=== PATIENT | female | born 1950 | race Caucasian/White ===

== ENCOUNTER 2017-02-13 10:18 | Outpatient (CLI) | payer MEDICARE, BC ==
--- NOTE | 2017-02-13 15:36 | RAD ---
ESOPHAGRAM: DATE: 02/13/17. HISTORY: Paraesophageal hernia, dysphagia. The patient has a history of paraesophageal hernia repair. The pa tiebetty now has dysphagia and feels as if liquids get stuck in upper esophagus. FLUOROSCOPY: Total fluoroscopy time 2.4 minutes with total dose of 1297.7 mGy*^cm2. FINDINGS: Thin liquid barium was administered during the exam. Esophagus has a normal appearance without evide nce of mucosal irregularity. However, there is tortuosity involving the distal esophagus with a foca l area of narrowing in the distal esophagus, some of which may be related to tortuosity and secondary to prior hiatal hernia repair. A 12.5 mm barium tablet was administered during the exam with holdup in the area of narrowing in the distal esophagus in the area of tortuosity. Esophagus proximal to t his region was also mildly dilated. There is evidence of gastroesophageal reflux with contrast exten ding to the level of the upper cervical esophagus. No definitive mucosal irregularity is appreciated in the esophagus. A 12.5 mm barium tablet does traverse the cervical and thoracic esophagus freely and without holdup aside from holdup at the level of narrowing in the most distal esophagus. Chest x-ray obtained prior to this exam demonstrates normal size of the cardiac silhouette. Pulmonar y vasculature is within normal limits and the lungs are clear. Vascular calcification in the thoraci c aorta. IMPRESSION: 1. Focal narrowing of the distal thoracic esophagus which is in the region of tortuosity and some of this is likely attributable to prior hiatal hernia repair. There is a persistent very small hiatal hernia. Esophagus just proximal to the area of narrowing is mildly dilated. There is evidence of ga stroesophageal reflux to the level of the upper cervical esophagus. 2. No focal persistent narrowing is seen in the cervical esophagus. No definitive mucosal irregular ity is appreciated on this exam. POS: AUGUSTUS
== END 2017-02-13 10:19 | disposition home or self-care (01) ==
LOC: RAD 10:18
PROVIDERS: ATTEND Surgery
DX: K44.9 Diaphragmatic hernia without obstruction or gangrene (principal); K21.9 Gastro-esophageal reflux disease without esophagitis; K22.8 Other specified diseases of esophagus; R13.10 Dysphagia, unspecified
CPT/HCPCS: 74220

== ENCOUNTER 2017-03-10 06:42 | Day surgery (SDC) | payer MEDICARE, BC ==
[2017-03-09 10:40] VITALS: BMI 29.0
--- NOTE | 2017-03-10 05:47 | HP ---
SHORT STAY HISTORY AND PHYSICAL DATE OF ADMISSION: 03/10/2017 HISTORY: This is a 66-year-old with dysphagia of recent onset. The patient is status post Talat fundoplication by Dr. Antonio in the past. The patient has history of dysphagia over the last several months. She had a barium study which revealed a delay of passage of the barium tablet. Also the esophageal body was dilated with some retained fluid. The patient underwent EGD because of dysphagia. ALLERGIES: None. PAST MEDICAL HISTORY: 1. Chronic reflux esophagitis. 2. Hyperlipidemia. 3. Hiatus hernia, status post repair. 4. Barroso's mucosa. PHYSICAL EXAMINATION: VITAL SIGNS: Pulse is 70, blood pressure 130/80. HEENT: Conjunctivae clear. CARDIOVASCULAR: First and second heart sounds are normal. LUNGS: Clear to auscultation. ABDOMEN: Soft to palpate. No organomegaly. No tenderness. No masses. ADMITTING DIAGNOSIS: Dysphagia. PLAN: EGD and possible dilation. MTDD
[2017-03-10] MEDS ORDERED: Metoprolol Tartrate 5 MG/5 ML VIAL ONE (06:53)
[2017-03-10] MEDS ORDERED: Glycopyrrolate 0.2 MG/ML 5 ML SYRINGE ONE (06:53)
[2017-03-10] MEDS ORDERED: Lidocaine 1% PF 5 ML VIAL ONE (06:53)
--- NOTE | 2017-03-13 13:38 | OP ---
DATE OF SURGERY: 03/10/2017 OPERATIVE PROCEDURE: Esophagogastroduodenoscopy and biopsy, esophageal dilation with balloon size 15 -18 mm. PREOPERATIVE DIAGNOSES: 66-year-old with longstanding acid reflux, has a history of Johnathan t's mucosa. The patient has undergone a laparoscopic hiatal hernia repair by Dr. Antonio in the past . The patient comes in with dysphagia. POSTOPERATIVE DIAGNOSES: 1. Barroso's mucosa over the distal esophagus. 2. No definite esophageal narrowing seen on endoscopy. PROCEDURE NOTE: The patient was placed on the left lateral position and was given sedation by Anesth esia Department. A Pentax video gastroscope under direct vision was passed down the oropharynx into the esophagus. The patient's exam was very difficult due to the fact that she has copious amounts of mucus in the throat and also in the esophagus. Also, she was constantly gagging and coughing in spi te of heavy sedation. The patient appears to have Barroso's mucosa over the distal esophagus. Four- quadrant biopsies were obtained in the distal esophagus. The GE junction itself does not appear to b e very tight. The scope easily advanced into the stomach without any difficulty. Retroflexion faile d to show any pathology in the fundus or cardia. Gastric body and gastric antrum, no pathology seen. The duodenal bulb and descending duodenum, no pathology seen. The scope was removed. Because of h istory of dysphagia, an attempt was made to pass a 50-[place] Gallegos dilator. However, because of co nstant gagging and coughing, it was difficult to advance the dilator. It was removed. The patient w as re-scoped again. A Bard balloon size 15-18 mm was placed on the GE junction and inflated to stage 1 for 2 minutes to stage 2, and 3 for 2 minutes. Some mild friability in the GE junction. The stom ach was decompressed and the scope removed. DISCHARGE PLANNING: This is a 66-year-old female who came for an EGD because of dysphagia of recent onset. On endoscopy, she was found to have Barroso's mucosa and esophagitis. The patient has had a previous fundoplication. The patient underwent EGD with biopsy and dilation. The patient did well post procedure and being discharged home. DISCHARGE INSTRUCTIONS: 1. The patient was advised to call me if she develops any abdominal pain, hematochezia, or fever. 2. In the absence of any of her symptoms, she will come back to me in 2 weeks.
== END 2017-03-10 10:50 | disposition home or self-care (01) ==
LOC: SDC 06:42
PROVIDERS: ATTEND Internal Medicine Gastroenterology
PROC: 0DB58ZX Excision of Esophagus, Via Natural or Artificial Opening Endoscopic, Diagnostic (ICD-10-PCS; principal; 2017-03-10)
PROC: 0D748ZZ Dilation of Esophagogastric Junction, Via Natural or Artificial Opening Endoscopic (ICD-10-PCS; 2017-03-10)
DX: K22.70 Barrett's esophagus without dysplasia (principal); K21.0 Gastro-esophageal reflux disease with esophagitis; E78.5 Hyperlipidemia, unspecified; Z90.710 Acquired absence of both cervix and uterus; Z98.42 Cataract extraction status, left eye; Z98.41 Cataract extraction status, right eye; Z96.1 Presence of intraocular lens; Z98.890 Other specified postprocedural states; Z85.51 Personal history of malignant neoplasm of bladder
CPT/HCPCS: 88305; 88312; 88313; J2001; J7620

== ENCOUNTER 2017-11-23 10:06 | Outpatient (CLI) | payer MEDICARE, BC | END 2017-11-23 10:07 | disposition home or self-care (01) | LOC: BICMAMMO 10:06 | PROVIDERS: ATTEND Family Medicine | DX: Z12.31 Encounter for screening mammogram for malignant neoplasm of breast (principal); Z85.51 Personal history of malignant neoplasm of bladder | CPT/HCPCS: 77063; 77067 ==

== ENCOUNTER 2018-09-28 12:51 | Outpatient (CLI) | payer MEDICARE, BC ==
[~2018-09-28 12:51] MED LIST: Iopamidol 370 76% 100 ML VIAL ONE; Iopamidol 370 76% 50 ML VIAL FS ONE
--- NOTE | 2018-09-28 17:28 | CT ---
PELVIC CT SCAN WITH IV CONTRAST: 09/28/18 HISTORY: Vaginal mass. COMPARISON: 11/01/2011. FINDINGS: There is some nodular fullness at the base of the bladder which appears to be very little changed fro m a prior 2011 study. There is no evidence for any type of pelvic mass deep to the vagina. The urinar y bladder appears unremarkable. The visualized ureters are unremarkable. Minimal stable nodularity at the cecal apex but that is also stable in appearance. No abnormal fluid collection. IMPRESSION: Some nonspecific nodular fullness below the level of the bladder. No evidence for mass deep in the pe lvis or pelvic sidewall or associated adenopathy or abscess or abnormal fluid collection. Very little change in appearance from an 11/01/11 study. In regards to vaginal mass, direct inspection certainly is suggested. POS: TPC
== END 2018-09-28 12:52 | disposition home or self-care (01) ==
LOC: CT 12:51
PROVIDERS: ATTEND Internal Medicine Gastroenterology
DX: N89.8 Other specified noninflammatory disorders of vagina (principal); N32.89 Other specified disorders of bladder
CPT/HCPCS: 72193; 82565; Q9967

== ENCOUNTER 2018-11-26 09:44 | Outpatient (CLI) | payer MEDICARE, BC ==
--- NOTE | 2018-11-26 10:24 | BD ---
EXAM: DEXA bone density examination HISTORY: 68-year-old postmenopausal female for screening COMPARISON: None FINDINGS: L1--bone mineral density 1.023 g/sq cm; T score 0.3 L2--bone mineral density 0.910 g/sq cm; T score -1.1 L3--bone mineral density 0.983 g/sq cm; T score -0.9 L4--bone mineral density 0.943 g/sq cm; T score -1.1 Total L1-L4--bone mineral density 0.960 g/sq cm; T score -0.8 Left femoral neck--bone mineral density0.709; T score -1.3 Total proximal left femur--bone mineral density 0.926; T score -0.1 IMPRESSION: Osteopenia This patient has a 10 year WHO fracture risk of a major osteoporotic fracture of 9.2% and of a hip fracture of 1.0%.
--- NOTE | 2018-11-26 13:16 | MMO ---
Bilateral MAMMO Bilat Screen [facility]. CLINICAL HISTORY: Patient is 68 years old and is seen for screening. The patient has no family history of breast cancer. The patient has no personal history of cancer. VIEWS: The views performed were: bilateral craniocaudal with tomosynthesis and bilateral mediolateral oblique with tomosynthesis. FILMS COMPARED: The present examination has been compared to prior imaging studies performed at [facility] on 11/07/2014, 11/16/2015, 11/21/2016 and 11/23/2017. This study has been interpreted with the assistance of computer-aided detection. MAMMOGRAM FINDINGS: There are scattered fibroglandular densities. Finding 1: There are stable benign appearing calcifications seen in both breasts. Finding 2: There are stable benign appearing densities seen in both breasts. There are no suspicious masses, suspicious calcifications, or new areas of architectural distortion. IMPRESSION: THERE IS NO MAMMOGRAPHIC EVIDENCE OF MALIGNANCY. A ROUTINE FOLLOW-UP MAMMOGRAM IN 1 YEAR IS RECOMMENDED. THE RESULTS OF THIS EXAM WERE SENT TO THE PATIENT. ACR BI-RADS Category 2 - Benign finding MAMMOGRAPHY NOTE: 1. A negative mammogram report should not delay a biopsy if a dominant of clinically suspicious mass is present. 2. Approximately 10% to 15% of breast cancers are not detected by mammography. 3. Adenosis and dense breasts may obscure an underlying neoplasm. Reported by: LOIDA MCLEOD MD Electonically Signed: [id number]
== END 2018-11-26 09:45 | disposition home or self-care (01) ==
LOC: BICMAMMO 09:44
PROVIDERS: ATTEND Family Medicine
DX: Z12.31 Encounter for screening mammogram for malignant neoplasm of breast (principal); M85.89 Other specified disorders of bone density and structure, multiple sites
CPT/HCPCS: 77063; 77067; 77080

== ENCOUNTER 2021-03-26 10:22 | Outpatient (CLI) | payer MEDICARE, BC | END 2021-03-26 10:23 | disposition home or self-care (01) | LOC: BICMAMMO 10:22 | PROVIDERS: ATTEND Family Medicine | DX: Z12.31 Encounter for screening mammogram for malignant neoplasm of breast (principal) | CPT/HCPCS: 77063; 77067 ==

== ENCOUNTER 2022-04-26 09:55 | Outpatient (CLI) | payer MEDICARE, BC | END 2022-04-26 09:56 | disposition home or self-care (01) | LOC: BICMAMMO 09:55 | PROVIDERS: ATTEND Family Medicine | DX: Z12.31 Encounter for screening mammogram for malignant neoplasm of breast (principal) | CPT/HCPCS: 77063; 77067 ==

== ENCOUNTER 2023-05-26 11:00 | Outpatient (CLI) | payer MEDICARE, BC | END 2023-05-26 11:01 | disposition home or self-care (01) | LOC: BICMAMMO 11:00 | PROVIDERS: ATTEND Family Medicine | DX: Z12.31 Encounter for screening mammogram for malignant neoplasm of breast (principal) | CPT/HCPCS: 77063; 77067 ==